=== PATIENT | female | born 1940 | race Caucasian/White ===

== ENCOUNTER 2019-09-29 12:48 | Emergency (ER) | payer OTHER ==
[~2019-09-29] VITALS: Ht 167.6 cm; Wt 68.0 kg
[2019-09-29 12:55] VITALS: BP 140/108
[2019-09-29] MEDS ORDERED: ACETAMINOPHEN 500 MG TAB PO ONE (13:15)
[2019-09-29] MEDS ORDERED: TETANUS-DIPTH-ACEL PERTUSSIS 0.5ML SYR Tdap IM ONE (13:30)
[2019-09-29] MEDS ORDERED: LIDOCAINE 1% HCL (LOCAL ANESTH.) INJ 20ML MDV ID ONE (13:30)
== END 2019-09-29 14:34 | disposition home or self-care (01) ==
LOC: EDBD 12:48 → ER 12:48
DX: S91.312A Laceration without foreign body, left foot, initial encounter (principal); E78.5 Hyperlipidemia, unspecified; I10 Essential (primary) hypertension; Z88.0 Allergy status to penicillin; Z88.6 Allergy status to analgesic agent; W45.8XXA Other foreign body or object entering through skin, initial encounter; Y93.89 Activity, other specified; Y92.89 Other specified places as the place of occurrence of the external cause; Y99.8 Other external cause status
CPT/HCPCS: 12002; 73630; 90471; 90715; 99283; J2001

== ENCOUNTER 2020-05-30 20:04 | Inpatient (IN) | payer OTHER ==
[~2020-05-30] VITALS: Ht 167.6 cm; Wt 73.3 kg
[2020-05-30] MEDS ORDERED: SODIUM CHLORIDE 0.9% 1,000 ML IV ONE (23:00)
[2020-05-30 23:42] LABS: Basophils # (auto) 0.1 10 ^3/uL (0-0.2); Basophils % (auto) 0.6 % (0.0-2.0); Eosinophils # (auto) 0.1 10 ^3/uL (0-0.8); Eosinophils % (auto) 0.8 % (0.0-7.0); Hematocrit 41.2 % (36.0-46.0); Hemoglobin 13.5 g/dL (12.2-16.2); Lymphocytes # (auto) 1.4 10 ^3/uL (0.4-5.4); Lymphocytes % (auto) 9.2 % (10.0-50.0); Mean Corpuscular Hemoglobin 30.4 pg (28.0-32.0); Mean Corpuscular Hgb Conc. 32.7 g/dL (32.0-36.0); Monocytes # (auto) 1.4 10 ^3/uL (0-1.3); Monocytes % (auto) 8.9 % (0.0-12.0); Neutrophils # (auto) 12.5 10 ^3/uL (1.6-8.6); Neutrophils % (auto) 80.5 % (37.0-80.0); Nucleated Red Blood Cells % 0.1 %; Platelet Count (auto) 236 10^3/uL (140-450); Red Blood Cells 4.43 10^6/uL (4.0-5.20); Red Cell Distribution Width 13.9 % (11.8-14.3); White Blood Cell 15.5 10^3/uL (4.4-10.8)
[2020-05-30 23:58] LABS: Albumin 3.6 g/dL (3.4-5.0); Calcium 8.5 mg/dL (8.5-10.1); Potassium 4.5 mmol/L (3.5-5.1)
[2020-05-31 00:01] LABS: Bilirubin, Total 1.1 mg/dL (0.2-1.0); Total Protein 6.3 g/dL (6.4-8.2)
[2020-05-31 01:04] LABS: Urine Bacteria NONE SEEN /hpf (None Seen); Urine Blood Negative /uL (Negative); Urine Mucus FEW (None Seen); Urine WBC 3 /hpf (0 - 5)
[2020-05-31] MEDS ORDERED: MESALAMINE 400mg Delayed Release Cap PO ONE (02:30)
[2020-05-31] MEDS ORDERED: fentaNYL CITRATE 100 MCG/2 ML VL IV ONE (02:30)
[2020-05-31] MEDS ORDERED: CIPROFLOXACIN HCL 500 MG TAB PO ONE (02:30)
[2020-05-31] MEDS ORDERED: cefTRIAXone 1GM/50ML D5W 50 ML IV ONE (03:15)
[2020-05-31] MEDS ORDERED: ONDANSETRON HCL 4 MG/2 ML VIAL IV PRN (05:30)
[2020-05-31] MEDS ORDERED: HYDROcodone-ACET 5/325MG TAB PO PRN ×3 (05:30→17:15)
[2020-05-31] MEDS ORDERED: ACETAMINOPHEN 325 MG TAB PO PRN (05:30)
[2020-05-31] MEDS ORDERED: MORPHINE SULF INJ 2 MG/ML SYRINGE 1ML IV PRN (05:30)
[2020-05-31] MEDS ORDERED: VANCOMYCIN PER PHARMACY 0 MG IV SCH (05:30)
[2020-05-31] MEDS ORDERED: NITROGLYCERIN 0.4 MG SL TAB SL PRN (05:30)
[2020-05-31] MEDS ORDERED: MORPHINE SULFATE 4 MG/ML SYR/VIAL IV PRN (05:30)
[2020-05-31] MEDS: metroNIDAZOLE 500MG/100ML 100 ML IV SCH ×3 (06:00→22:00)
[2020-05-31] MEDS ORDERED: VANCOMYCIN 1GM/250ML 250 ML IV ONE (06:15)
[2020-05-31 07:42] LABS: Basophils # (auto) 0.1 10 ^3/uL (0-0.2); Basophils % (auto) 0.7 % (0.0-2.0); Eosinophils # (auto) 0.2 10 ^3/uL (0-0.8); Eosinophils % (auto) 1.6 % (0.0-7.0); Hematocrit 37.6 % (36.0-46.0); Hemoglobin 12.2 g/dL (12.2-16.2); Lymphocytes # (auto) 1.9 10 ^3/uL (0.4-5.4); Lymphocytes % (auto) 15.7 % (10.0-50.0); Mean Corpuscular Hemoglobin 30.4 pg (28.0-32.0); Mean Corpuscular Hgb Conc. 32.4 g/dL (32.0-36.0); Monocytes # (auto) 1.3 10 ^3/uL (0-1.3); Monocytes % (auto) 10.9 % (0.0-12.0); Neutrophils # (auto) 8.7 10 ^3/uL (1.6-8.6); Neutrophils % (auto) 71.1 % (37.0-80.0); Platelet Count (auto) 249 10^3/uL (140-450); Red Cell Distribution Width 13.5 % (11.8-14.3); White Blood Cell 12.2 10^3/uL (4.4-10.8)
[2020-05-31 08:08] LABS: Cholesterol 123 mg/dL (< 200); HDL Cholesterol 56 mg/dL (40-59); LDL Cholesterol 57 mg/dL (< 100); Triglycerides 56 mg/dL (< 150)
[2020-05-31 08:16] LABS: Albumin 3.3 g/dL (3.4-5.0); BUN/Creatinine Ratio 21.3; Bilirubin, Total 0.7 mg/dL (0.2-1.0); Calcium 8.2 mg/dL (8.5-10.1); Total Protein 5.6 g/dL (6.4-8.2)
[2020-05-31] MEDS ORDERED: ASCORBIC ACID 500 MG TAB PO SCH (10:00)
[2020-05-31] MEDS ORDERED: ENOXAPARIN SOD 40 MG/0.4 ML SYRINGE SC SCH (10:00)
[2020-05-31] MEDS ORDERED: ZINC SULFATE 220mg CAP or TAB PO SCH (10:00)
[2020-05-31] MEDS ORDERED: MULTIPLE VITAMIN TAB PO SCH (10:00)
--- NOTE | 2020-05-31 10:28 | NUR ---
Telemetry admit from ER CALVIN DENIS admitted to Telemetry unit, no report received from ER. Patient oriented to TOM GOLDSTEIN primary RN, unit, room 296B and unit policies regarding patient care and visiting hours. Patient now on continuous telemetry monitoring, tele box #[id number] and telemetry reading on arrival to unit is sr 83. Patient weighed by bed scale and encouraged to call if they need something. All questions and concerns addressed, patient verbalized understanding.
[2020-05-31] MEDS: SOD CHL 0.45% 1,000 ML IV SCH ×2 (11:05→20:08)
[2020-05-31] MEDS: PANTOPRAZOLE 40 MG/10 ML VIAL INJ IV SCH (11:05)
[2020-05-31] MEDS ORDERED: MECL25TA18 PO (11:24)
[2020-05-31] MEDS ORDERED: AMLO5TAB15 PO (11:24)
[2020-05-31] MEDS ORDERED: LATA0.0019 LEFTEYE (11:24)
[2020-05-31] MEDS ORDERED: SIMV10TA84 PO (11:24)
[2020-05-31] MEDS ORDERED: ACET120S38 PR (11:24)
--- NOTE | 2020-05-31 11:55 | NUR ---
FAMILIA AT BEDSIDE Updated on the patient status. Plan of care was discussed with the patient and she verbalized understanding.
--- NOTE | 2020-05-31 12:30 | NUR ---
COVID SWAB WALKED TO LAB
[2020-05-31 13:00] VITALS: BP 120/58
[2020-05-31 14:06] LABS: INR 1.01 (0.9-1.15)
[2020-05-31 17:00] VITALS: BP 130/68
[2020-05-31] MEDS ORDERED: VANCOMYCIN 1GM/250ML 250 ML IV SCH (17:00)
[2020-05-31] MEDS: levoFLOXacin 500MG 100 ML IV SCH (17:28)
[2020-05-31] MEDS ORDERED: MESALAMINE 400mg Delayed Release Cap PO SCH (18:00)
--- NOTE | 2020-05-31 18:14 | NUR ---
IV INFILTRATION Levaquin infiltrated, patient complaining of itching and stinging at IV site, erythema noted. Called pharmacy. Per Pharmacist there is no protocol for infiltration with Levaquin, instructed to elevate extremity. Will discontinue IV and attempt a new start.
--- NOTE | 2020-05-31 18:32 | NUR ---
IV insertion IV access obtained, via clean sterile technique by inserting 22 gauge catheter at right AC after 2 attempts. IV secured properly. No trauma to site. Patient tolerated well.
--- NOTE | 2020-05-31 20:05 | NUR ---
open note assumed care of pt. pt awake and alert on room air. pt oriented to this nurse and updated on plan of care. pt denied any pain. pt bed locked low and 2x rails up. call light in reach. this nurse to round q1hr and prn. pt able to ambulate to rest room independently without incident.
[2020-05-31 22:34] VITALS: BP 126/62
[2020-06-01 05:25] LABS: Basophils # (auto) 0.1 10 ^3/uL (0-0.2); Basophils % (auto) 0.6 % (0.0-2.0); Eosinophils # (auto) 0.5 10 ^3/uL (0-0.8); Eosinophils % (auto) 4.7 % (0.0-7.0); Hematocrit 38.8 % (36.0-46.0); Hemoglobin 12.6 g/dL (12.2-16.2); Lymphocytes # (auto) 2.4 10 ^3/uL (0.4-5.4); Lymphocytes % (auto) 21.3 % (10.0-50.0); Mean Corpuscular Hemoglobin 30.6 pg (28.0-32.0); Mean Corpuscular Hgb Conc. 32.4 g/dL (32.0-36.0); Mean Corpuscular Volume 94.3 fL (80.0-100.0); Monocytes # (auto) 1.2 10 ^3/uL (0-1.3); Monocytes % (auto) 10.9 % (0.0-12.0); Neutrophils # (auto) 7.1 10 ^3/uL (1.6-8.6); Neutrophils % (auto) 62.5 % (37.0-80.0); Nucleated Red Blood Cells % 0.1 %; Platelet Count (auto) 240 10^3/uL (140-450); Red Blood Cells 4.11 10^6/uL (4.0-5.20); Red Cell Distribution Width 13.9 % (11.8-14.3); White Blood Cell 11.3 10^3/uL (4.4-10.8)
[2020-06-01 05:32] LABS: Potassium 4.1 mmol/L (3.5-5.1)
[2020-06-01 05:33] VITALS: BP 120/55
[2020-06-01 05:41] LABS: Albumin 3.2 g/dL (3.4-5.0); BUN/Creatinine Ratio 13.9; Bilirubin, Total 0.5 mg/dL (0.2-1.0); Calcium 8.3 mg/dL (8.5-10.1); Total Protein 6.2 g/dL (6.4-8.2)
[2020-06-01] MEDS: metroNIDAZOLE 500MG/100ML 100 ML IV SCH ×2 (06:00→14:00)
--- NOTE | 2020-06-01 07:04 | NUR ---
OPENING SHIFT NOTE Assumed care of patient from slot shift manager RN. Patient is alert and oriented x4, no signs of distress noted, denies pain. She was updated on the plan of care and verbalized understanding. Bed is locked, in the lowest position, side rails are up x2 and call light is in reach. She was encouraged to call for assistance as needed.
--- NOTE | 2020-06-01 07:14 | NUR ---
CALLED [facility] FOR COVID RESULTS per lab rep the sample needs to be retested and she will call me back if a new sample is needed. Will follow up.
[2020-06-01 08:00] VITALS: BP 113/57
[2020-06-01] MEDS: SOD CHL 0.45% 1,000 ML IV SCH (08:10)
[2020-06-01] MEDS: PANTOPRAZOLE 40 MG/10 ML VIAL INJ IV SCH (09:37)
[2020-06-01] MEDS: levoFLOXacin 500MG 100 ML IV SCH (09:37)
[2020-06-01 12:00] VITALS: BP 111/58
[2020-06-01 13:23] VITALS: BP 111/58
--- NOTE | 2020-06-01 14:27 | NUR ---
DISCHARGE Discharge instructions given as ordered. Encourage to follow up with PMD as instructed. All questions and concerns addressed. Patient verbalized understanding. Medication reconciliation form completed and copy given to patient. Home medications held in Pharmacy returned to patient, IV removed with catheter intact, pressure dressing applied. Telemetry unit returned to ICU. Patient taken to vehicle via wheelchair with all personal belongings, accompanied. No distress noted at time of departure.
[2020-06-01] MEDS ORDERED: LEVO500T21 PO (16:34)
[2020-06-01] MEDS ORDERED: METR500T PO (16:34)
--- NOTE | 2020-06-02 11:36 | NUR ---
Faxed Home Health Safety Eval to [facility] FAX [phone], , Faxed Home Safety Eval to [facility], [phone].
--- NOTE | 2020-06-02 12:26 | NUR ---
Received a call from Qiana at [facility] and stated they have accepted the patient, called [place] [facility] and spoke with Meka ZELAYA and stated she will fax the authorization to [facility]
[2020-06-02 12:58] LABS: Hepatitis A Ab IgM Negative; Hepatitis B Core IgM Negative; Hepatitis B Surface Antigen Negative (Negative); Hepatitis C Antibody Negative (Negative)
== END 2020-06-01 14:27 | disposition home health service (06) | DRG 442 ==
LOC: ER 20:04 → EDBD 20:04 → TELE 20:05 → TELE-WESTW 05-31 10:30
PROVIDERS: ADMIT Nurse Practitioner Family; ATTEND Nurse Practitioner Family
DX: K71.2 Toxic liver disease with acute hepatitis (principal); N30.01 Acute cystitis with hematuria; K58.9 Irritable bowel syndrome, unspecified; Z20.828 Contact with and (suspected) exposure to other viral communicable diseases; E78.5 Hyperlipidemia, unspecified; I10 Essential (primary) hypertension; I70.0 Atherosclerosis of aorta; K44.9 Diaphragmatic hernia without obstruction or gangrene; K80.50 Calculus of bile duct without cholangitis or cholecystitis without obstruction; E78.00 Pure hypercholesterolemia, unspecified; M19.90 Unspecified osteoarthritis, unspecified site; Z90.49 Acquired absence of other specified parts of digestive tract; Z79.899 Other long term (current) drug therapy; Z88.0 Allergy status to penicillin; Z88.8 Allergy status to other drugs, medicaments and biological substances; D72.829 Elevated white blood cell count, unspecified
CPT/HCPCS: 36415; 74176; 76705; 80053; 80061; 80074; 81001; 83690; 84484; 85025; 85610; 96361; 96365; 96375; C9113; G0378; J0696; J1956; J2405; J3490

== ENCOUNTER 2021-04-18 10:36 | Inpatient (IN) | payer MEDICARE, OTHER ==
[~2021-04-18] VITALS: Ht 160 cm; Wt 57.5 kg
[~2021-04-18 10:36] MED LIST: ACET120S38 PR; AMLO-489 PO; LATA0.0019 LEFTEYE; LEVO500T31 PO; MECL25TA18 PO; METR500T PO
[2021-04-18] MEDS ORDERED: ACETAMINOPHEN 325 MG TAB PO ONE (11:00)
[2021-04-18] MEDS ORDERED: SODIUM CHLORIDE 0.9% 1,000 ML IV ONE (11:00)
[2021-04-18 11:58] LABS: Basophils # (auto) 0.1 10 ^3/uL (0-0.2); Basophils % (auto) 0.4 % (0.0-2.0); Eosinophils # (auto) 0 10 ^3/uL (0-0.8); Eosinophils % (auto) 0.3 % (0.0-7.0); Hematocrit 36.8 % (36.0-46.0); Hemoglobin 12.4 g/dL (12.2-16.2); Lymphocytes % (auto) 7.2 % (10.0-50.0); Mean Corpuscular Hemoglobin 31.3 pg (28.0-32.0); Mean Corpuscular Hgb Conc. 33.7 g/dL (32.0-36.0); Monocytes # (auto) 1.7 10 ^3/uL (0-1.3); Monocytes % (auto) 12.1 % (0.0-12.0); Neutrophils # (auto) 11.6 10 ^3/uL (1.6-8.6); Red Blood Cells 3.96 10^6/uL (4.0-5.20); Red Cell Distribution Width 13.9 % (11.8-14.3); White Blood Cell 14.5 10^3/uL (4.4-10.8)
[2021-04-18 12:02] LABS: Chloride 109 mmol/L (98-107); Potassium 3.9 mmol/L (3.5-5.1); Sodium 142 mmol/L (136-145)
[2021-04-18 12:25] LABS: Alanine Aminotransferase 26 U/L (13-56); Albumin 3.2 g/dL (3.4-5.0); Alkaline Phosphatase 59 U/L (45-117); Anion Gap 5 (5-15); Aspartate Aminotransferase 16 U/L (15-37); BUN/Creatinine Ratio 20.8; Bilirubin, Total 0.4 mg/dL (0.2-1.0); Blood Urea Nitrogen 15 mg/dL (7-18); CRP High Sensitivity 0.23 mg/dL (< 0.3); Calcium 8.3 mg/dL (8.5-10.1); Carbon Dioxide 28 mmol/L (21-32); GFR African American 100 mL/min; GFR Non-African American 83 mL/min; Glucose 103 mg/dL (74-106); Magnesium 2.1 mg/dL (1.6-2.6); Total Protein 6.2 g/dL (6.4-8.2)
[2021-04-18 14:38] LABS: Urine Bacteria NONE SEEN /hpf (None Seen); Urine Blood Negative /uL (Negative); Urine Mucus FEW (None Seen); Urine Specific Gravity 1.014 (1.001-1.035); Urine WBC 7 /hpf (0 - 5)
[2021-04-18] MEDS ORDERED: NITROGLYCERIN 0.4 MG SL TAB SL PRN ×2 (15:30→16:15)
[2021-04-18] MEDS ORDERED: MORPHINE SULFATE INJECTION 2 MG/ML SYRG IV PRN ×3 (15:30→16:15)
[2021-04-18] MEDS ORDERED: AZITHROMYCIN 500MG/ 250ML 250 ML IV ONE (15:30)
[2021-04-18] MEDS ORDERED: AZTREONAM 1GM INJ 1 GM in D5W 5% 50 ML IV ONE (15:30)
[2021-04-18] MEDS ORDERED: ONDANSETRON HCL 4 MG/2 ML VIAL IV PRN (16:15)
[2021-04-18] MEDS ORDERED: DOCUSATE SOD 100 MG CAP PO PRN (16:15)
[2021-04-18] MEDS ORDERED: ALUM & MAG HYDROX-SIMETH LIQ(MAALOX) 30 ML PO PRN (16:15)
[2021-04-18] MEDS ORDERED: LACTATED RINGER'S 1,000 ML IV ONE (16:15)
[2021-04-18] MEDS ORDERED: LORazepam 0.5 MG TAB PO PRN (16:15)
[2021-04-18] MEDS ORDERED: LORazepam 2MG/ML-1ML VIAL IV PRN (16:15)
[2021-04-18] MEDS ORDERED: ACETAMINOPHEN 325 MG TAB PO PRN (16:15)
[2021-04-18] MEDS ORDERED: HYDROcodone-ACET 5/325MG TAB PO PRN (16:15)
[2021-04-18] MEDS ORDERED: hydrALAZINE HCL 20 MG/ML VL IV PRN (16:30)
[2021-04-18] MEDS ORDERED: MECLIZINE HCL 25 MG TAB PO PRN (16:30)
[2021-04-18] MEDS ORDERED: ENOXAPARIN SOD 40 MG/0.4 ML SYRINGE SC ONE (16:30)
[2021-04-18] MEDS: SODIUM CHLORIDE 0.9% 1,000 ML IV SCH (16:46)
[2021-04-18 17:18] LABS: Cholesterol 101 mg/dL (< 200)
[2021-04-18 17:22] LABS: HDL Cholesterol 58 mg/dL (40-59); LDL Cholesterol 44 mg/dL (< 100); Triglycerides 51 mg/dL (< 150)
[2021-04-18 19:16] LABS: Alcohol, Urine < 3.0 mg/dL (0-10); Amphetamine Screen, Urine NEGATIVE (NEGATIVE); Barbiturate Scree,Urine NEGATIVE (NEGATIVE); Benzodiazephine Screen, Urine NEGATIVE (NEGATIVE); Cannabinoid Screen, Urine NEGATIVE (NEGATIVE); Cocaine Screen, Urine NEGATIVE (NEGATIVE); Opiate Scree,Urine NEGATIVE (NEGATIVE); Phencyclidine Screen, Urine NEGATIVE (NEGATIVE)
[2021-04-18 19:47] VITALS: BP 118/51
[2021-04-18 20:08] VITALS: BP 118/51
[2021-04-18] MEDS: FAMOTIDINE (10MG/ML) 2ML VL IV SCH (21:09)
[2021-04-18] MEDS: LATANOPROST 0.005 % OPTH(EYE) SOL 2.5ML LEFTEYE SCH (21:09)
[2021-04-18] MEDS: AZTREONAM 1GM INJ 1 GM in D5W 5% 50 ML IV SCH (21:09)
[2021-04-18] MEDS: traZODone HCL 50 MG TAB PO SCH (21:09)
[2021-04-18] MEDS: ATORVASTATIN 20 MG TAB PO SCH (21:10)
[2021-04-18] MEDS ORDERED: TRAZ-181 PO (21:14)
[2021-04-18] MEDS ORDERED: [UNRECOGNIZED DRUG - CODE] PO (21:14)
[2021-04-18 22:00] VITALS: BP 118/51
[2021-04-19 05:00] VITALS: BP 105/62
[2021-04-19] MEDS: AZTREONAM 1GM INJ 1 GM in D5W 5% 50 ML IV SCH (05:39)
[2021-04-19 08:28] LABS: Basophils # (auto) 0.1 10 ^3/uL (0-0.2); Eosinophils # (auto) 0.2 10 ^3/uL (0-0.8); Eosinophils % (auto) 2.6 % (0.0-7.0); Hematocrit 32.2 % (36.0-46.0); Hemoglobin 10.9 g/dL (12.2-16.2); Lymphocytes # (auto) 1.8 10 ^3/uL (0.4-5.4); Lymphocytes % (auto) 19.3 % (10.0-50.0); Mean Corpuscular Hgb Conc. 33.9 g/dL (32.0-36.0); Mean Corpuscular Volume 94.3 fL (80.0-100.0); Monocytes % (auto) 10.7 % (0.0-12.0); Neutrophils # (auto) 6.4 10 ^3/uL (1.6-8.6); Neutrophils % (auto) 66.4 % (37.0-80.0); Nucleated Red Blood Cells % 0.1 %; Red Blood Cells 3.41 10^6/uL (4.0-5.20); Red Cell Distribution Width 14.1 % (11.8-14.3); White Blood Cell 9.6 10^3/uL (4.4-10.8)
[2021-04-19 08:47] LABS: Albumin 2.6 g/dL (3.4-5.0); Anion Gap 3 (5-15); Blood Urea Nitrogen 11 mg/dL (7-18); Carbon Dioxide 28 mmol/L (21-32); Chloride 110 mmol/L (98-107); Glucose 87 mg/dL (74-106); Magnesium 2.2 mg/dL (1.6-2.6); Potassium 3.9 mmol/L (3.5-5.1); Sodium 141 mmol/L (136-145)
[2021-04-19 08:54] LABS: Alanine Aminotransferase 20 U/L (13-56); Alkaline Phosphatase 50 U/L (45-117); Aspartate Aminotransferase 12 U/L (15-37); BUN/Creatinine Ratio 18.6; Bilirubin, Total 0.4 mg/dL (0.2-1.0); GFR African American 126 mL/min; GFR Non-African American 105 mL/min; Phosphorus 2.9 mg/dL (2.5-4.90); Total Protein 5.6 g/dL (6.4-8.2)
[2021-04-19] MEDS: SODIUM CHLORIDE 0.9% 1,000 ML IV SCH (08:55)
[2021-04-19 09:15] VITALS: BP 101/48
[2021-04-19 09:20] LABS: INR 0.99 (0.9-1.15); Partial Thromboplastin Time 28.3 sec (23.6-33.0)
[2021-04-19] MEDS: ENOXAPARIN SOD 40 MG/0.4 ML SYRINGE SC SCH (10:00)
[2021-04-19] MEDS: ASPirin 81 mg TAB PO SCH (10:00)
[2021-04-19] MEDS ORDERED: AZITHROMYCIN 500MG/ 250ML 250 ML IV SCH (10:00)
[2021-04-19 13:12] VITALS: BP 127/60
[2021-04-19 17:00] VITALS: BP 102/60
[2021-04-19] MEDS: LATANOPROST 0.005 % OPTH(EYE) SOL 2.5ML LEFTEYE SCH (21:19)
[2021-04-19] MEDS: FAMOTIDINE (10MG/ML) 2ML VL IV SCH (21:19)
[2021-04-19] MEDS: traZODone HCL 50 MG TAB PO SCH (21:19)
[2021-04-19] MEDS: ATORVASTATIN 20 MG TAB PO SCH (21:20)
[2021-04-19 22:00] VITALS: BP 126/72
[2021-04-20 05:00] VITALS: BP 111/55
[2021-04-20 07:50] VITALS: BP 132/73
[2021-04-20 09:00] VITALS: BP 132/73
[2021-04-20] MEDS: ASPirin 81 mg TAB PO SCH (09:08)
[2021-04-20] MEDS: ENOXAPARIN SOD 40 MG/0.4 ML SYRINGE SC SCH (09:09)
[2021-04-20] MEDS ORDERED: levoFLOXacin 750MG 150 ML IV SCH (10:00)
[2021-04-20] MEDS: PANTOPRAZOLE 40 MG TAB PO ONE ×2 (13:00→18:56)
[2021-04-20] MEDS ORDERED: HYOSCYAMINE SULF 0.125 MG ODT TAB PO PRN (13:00)
[2021-04-20] MEDS ORDERED: ALUM & MAG HYDROX-SIMETH LIQ(MAALOX) 30 ML PO PRN (13:30)
[2021-04-20 20:00] VITALS: BP 143/81
[2021-04-20] MEDS: PANTOPRAZOLE 40 MG TAB PO SCH (20:45)
[2021-04-20] MEDS: traZODone HCL 50 MG TAB PO SCH (20:45)
[2021-04-20] MEDS: ATORVASTATIN 20 MG TAB PO SCH (20:45)
[2021-04-20] MEDS: LATANOPROST 0.005 % OPTH(EYE) SOL 2.5ML LEFTEYE SCH (21:16)
[2021-04-20 22:00] VITALS: BP 143/81
[2021-04-21 05:30] VITALS: BP 122/58
[2021-04-21] MEDS: ASPirin 81 mg TAB PO SCH (08:33)
[2021-04-21] MEDS: PANTOPRAZOLE 40 MG TAB PO SCH (08:33)
[2021-04-21] MEDS: ENOXAPARIN SOD 40 MG/0.4 ML SYRINGE SC SCH (08:34)
[2021-04-21 09:00] VITALS: BP 118/47
[2021-04-21] MEDS ORDERED: LEVO750T64 PO (09:55)
[2021-04-21] MEDS ORDERED: PANT40T PO (09:56)
[2021-04-21] MEDS ORDERED: levoFLOXacin 250 MG TAB PO SCH (11:45)
[2021-04-22] MEDS ORDERED: levoFLOXacin 250 MG TAB PO SCH (10:00)
== END 2021-04-21 12:38 | disposition home or self-care (01) | DRG 871 ==
LOC: EDBD 10:36 → ER 10:36 → TELE 16:20 → TELE-CENTR 19:43
PROVIDERS: ADMIT Hospitalist; ATTEND Internal Medicine
DX: A41.9 Sepsis, unspecified organism (principal); J15.9 Unspecified bacterial pneumonia; J96.01 Acute respiratory failure with hypoxia; E44.0 Moderate protein-calorie malnutrition; B37.9 Candidiasis, unspecified; E78.5 Hyperlipidemia, unspecified; F02.80 Dementia in other diseases classified elsewhere, unspecified severity, without behavioral disturbance, psychotic disturbance, mood disturbance, and anxiety; F32.9 Major depressive disorder, single episode, unspecified; G30.9 Alzheimer's disease, unspecified; Z20.822 Contact with and (suspected) exposure to COVID-19; K58.9 Irritable bowel syndrome, unspecified; M54.50 Low back pain, unspecified; G89.29 Other chronic pain; H40.9 Unspecified glaucoma; I10 Essential (primary) hypertension; K21.9 Gastro-esophageal reflux disease without esophagitis; Z88.0 Allergy status to penicillin; Z88.8 Allergy status to other drugs, medicaments and biological substances; Z68.22 Body mass index [BMI] 22.0-22.9, adult; Z90.49 Acquired absence of other specified parts of digestive tract
CPT/HCPCS: 36415; 71045; 80053; 80061; 80307; 81001; 82728; 83036; 83605; 83615; 83735; 83880; 84100; 84443; 84484; 85025; 85379; 85610; 85730; 86141; 87040; 87070; 87081; 87086; 87205; 87426; 93005; 93306; 96361; 96365; 96366; 96367; 96375; G0378; J1956; J3490; J7060

== ENCOUNTER 2022-05-27 13:57 | Emergency (ER) | payer MEDICARE ==
[~2022-05-27] VITALS: Ht 162.6 cm; Wt 55.0 kg
[~2022-05-27 13:57] MED LIST changes: -LEVO500T31 PO; +LEVO750T64 PO; -METR500T PO; +PANT40T PO; +TRAZ-181 PO; +[UNRECOGNIZED DRUG - CODE] PO
[2022-05-27] MEDS ORDERED: HYDR-4902 PO (19:57)
[2022-05-27 20:55] VITALS: BP 117/68
== END 2022-05-27 20:53 | disposition home or self-care (01) ==
LOC: ER 13:57 → EDBD 13:57 → ER 20:53
DX: G89.29 Other chronic pain (principal); M54.50 Low back pain, unspecified; I10 Essential (primary) hypertension; E78.5 Hyperlipidemia, unspecified; Z90.49 Acquired absence of other specified parts of digestive tract; Z90.89 Acquired absence of other organs; Z79.2 Long term (current) use of antibiotics; Z79.899 Other long term (current) drug therapy; Z88.0 Allergy status to penicillin; Z88.8 Allergy status to other drugs, medicaments and biological substances
CPT/HCPCS: 72131

== ENCOUNTER 2024-08-02 11:17 | Inpatient (IN) | payer MEDICARE ==
[~2024-08-02] VITALS: Ht 157.5 cm; Wt 56.4 kg
[~2024-08-02 11:17] MED LIST changes: -AMLO-489 PO; +AMLO1TAB22 PO; +HYDR-4902 PO; -LATA0.0019 LEFTEYE; +LATA0.008 LEFTEYE; +LEVO750T40 PO; -LEVO750T64 PO; +MECL-90 PO; -MECL25TA18 PO
--- NOTE | 2024-08-02 11:48 | ED.PDOC ---
SOB-HPI HPI Comments 84y F who presents to the ED via EMS for chief complaint of flu-like symptoms. Per EMS, pt has been having flu-like symptoms with associated chills, and cough. Pt states this AM, she noticed she has blood like streaks in vomit and called EMS. Upon EMS arrival, pt had vitals checked and pt had stable vitals with noted exception of 02 sat of 91% on room air with no respiratory distress and EMS staff placed pt on 2 L via nc and 02 sat kate of 97%. Pt now in the ED, states she got concerned she might have possible pneumonia and after calling PCP office, she was told to call EMS. Pt now in the ED, has noted accu check of 101 and temp of 98.8F with all other vitals in normal range. Pt states only medical history of arthritis. Pt otherwise states she lives by herself and denies any other recent sick contacts. pt denies any other symptoms at this time. Chief Complaint: flu-like Time Seen by MD: 11:43 Primary Care Provider: hermilo Price notes: Nurses Notes, Wallpaper Printer Helper Notes, Medications, Allergies (No allergies to medications) Information Source: Patient, Emergency Med Personnel Mode of Arrival: EMS Brought in by: EMS Severity: Moderate Timing: Hours Duration: Since onset Context: At Rest PE Risk Factors: None History of: None Prehospital treatment: Oxygen Modifying Factors: Nothing Associated Signs and Symptoms: Cough, Other (chills) If cough with SOB: Non-Productive Past Medical History PAST MEDICAL HISTORY: Arthritis, High Lipids, HTN Surgical History: Cholecystectomy, Tonsillectomy Surgical History (Other): back surgery, catarcts MANAGER ASSESSMENT History: No Pertinent MANAGER ASSESSMENT History Family History Family History: Reviewed,noncontributory to illness, No family hx of Cancer, No family hx of DM, No family hx of Heart dionte, No family hx of HTN, No family hx ofKidney dionte, No family hx of Liver dionte, No family hx of Lung dionte, No family hx of Stroke Social History Smoker: Non-Smoker Alcohol: Denies ETOH Use Drugs: Denies Drug Use Lives In: Home Constitutional: reports: chills; denies: diaphoresis, fatigue, fever, malaise, sweats, weakness, others EENTM: denies: blurred vision, double vision, ear bleeding, ear discharge, ear drainage, ear pain, ear ringing, eye pain, eye redness, hearing loss, mouth pain, mouth swelling, nasal discharge, nose bleeding, nose congestion, nose pain, photophobia, tearing, throat pain, throat swelling, voice changes, others Respiratory: reports: cough; denies: hemoptysis, orthopnea, SOB at rest, shortness of breath, SOB with excertion, stridor, wheezing, others Cardiovascular: denies: chest pain, dizzy spells, diaphoresis, Dyspnea on exertion, edema, irregular heart beat, left arm pain, lightheadedness, palpitations, PND, syncope, others Gastrointestinal: reports: vomiting (blood in vomit); denies: abdomen distended , abdominal pain, blood streaked bowels, constipated, diarrhea, dysphagia, difficulty swallowing, hematemesis, melena, nausea, poor appetite, poor fluid intake, rectal bleeding, rectal pain, others Genitourinary: denies: abnormal vagina bleeding, burning, dyspareunia, dysuria, flank pain, frequency, hematuria, incontinence, pain, , vagina discharge, urgency, others Neurological: denies: dizziness, fainting, headache, left sided numbness, left sided weakness, numbness, paresthesia, pre-existing deficit, right sided numbness, right sided weakness, seizure, speech problems, tingling, tremors, weakness, others Musculoskeletal: denies: back pain, gout, joint pain, joint swelling, muscle pain, muscle stiffness, neck pain, others Integumetry: denies: bruises, change in color, change in hair/nails, dryness, laceration, lesions, lumps, rash, wounds, others Allergic/Immunocompromised: denies: Difficulty Healing, Frequent Infections, Hives, Itching, others Hematologic/Lymphatic: denies: anemia, blood clots, easy bleeding, easy bruising, swollen glands, others Endocrine: denies: excessive hunger, excessive sweating, excessive thirst, excessive urination, flushing, intolerance to cold, intolerance to heat, unexplained weight gain, unexplained weight loss, others Psychiatric: denies: anxiety, bipolar disorder, depression, hopeless, panic disorder, schizophrenia, sleepless, suicidal, others All Other Systems: Reviewed and Negative Physical Exam General Appearance: Moderate Distress HEENT: Normal ENT Inspection, Pharynx Normal, TMs Normal Neck: Full Range of Motion, Non-Tender, Normal, Normal Inspection Respiratory: Chest Non-Tender, No Accessory Muscle Use, Rhonchi (Rhonchi to the left side) Cardiovascular: No Edema, No JVD, No Murmur, No Gallop, Normal Peripheral Pulses, Regular Rate/Rhythm Breast Exam: Deferred Gastrointestinal: No Organomegaly, Non Tender, No Pulsatile Mass, Normal Bowel Sounds, Soft Genitalia: Deferred Pelvic: Deferred Rectal: Deferred Extremities: No calf tenderness, Normal capillary refill, Normal inspection, Normal range of motion, Non-tender, No pedal edema Musculoskeletal : Apperance: Normal Neurologic: Alert, refinery operator crude unit II-XII nml as Tested, No Motor Deficits, Normal Affect, Normal Mood, No Sensory Deficits Cerebellar Function: Normal Reflexes: Normal Skin: Dry, Normal Color, Warm Lymphatic: No Adenopathy Was a procedure done? Was a procedure done?: No Differential Dx Differential Diagnosis: Bronchitis, Pneumonia, Pulmonary Embolism, Respiratory Distress, Pharyngitis, URI Comments influenza A and B, COVID, viral syndrome, X-Ray, Labs, Meds, VS Vital Signs Date Time Temp Pulse Resp B/P (MAP) Pulse Ox O2 Delivery O2 Flow Rate FiO2 08/02/24 11:43 70 08/02/24 11:20 98.8 86 18 154/68 (96) 97 Lab Test 08/02/24 11:54 Range/Units White Blood Count 11.3 H 4.4-10.8 10^3/uL Red Blood Count 4.05 4.0-5.20 10^6/uL Hemoglobin 12.6 12.2-16.2 g/dL Hematocrit 38.3 36.0-46.0 % Mean Corpuscular Volume 94.6 80.0-100.0 fL Mean Corpuscular Hemoglobin 31.1 28.0-32.0 pg Mean Corpuscular Hemoglobin Concent 32.8 32.0-36.0 g/dL Red Cell Distribution Width 13.4 11.8-14.3 % Platelet Count 205 140-450 10^3/uL Mean Platelet Volume 9.1 6.9-10.8 fL Neutrophils (%) (Auto) 68.4 37.0-80.0 % Lymphocytes (%) (Auto) 20.1 10.0-50.0 % Monocytes (%) (Auto) 9.7 0.0-12.0 % Eosinophils (%) (Auto) 1.1 0.0-7.0 % Basophils (%) (Auto) 0.7 0.0-2.0 % Neutrophils # (Auto) 7.7 1.6-8.6 10 ^3/uL Lymphocytes # (Auto) 2.3 0.4-5.4 10 ^3/uL Monocytes # (Auto) 1.1 0-1.3 10 ^3/uL Eosinophils # (Auto) 0.1 0-0.8 10 ^3/uL Basophils # (Auto) 0.1 0-0.2 10 ^3/uL Nucleated Red Blood Cells 0.1 % D-Dimer, Quantitative 1.11 H 0.0-0.49 mg/L FEU Sodium Level 139 136-145 mmol/L Potassium Level 4.0 3.5-5.1 mmol/L Chloride Level 103 98-107 mmol/L Carbon Dioxide Level 29 20-31 mmol/L Anion Gap 7 5-15 Blood Urea Nitrogen 13 9-23 mg/dL Creatinine 0.92 0.550-1.02 mg/dL Glomerular Filtration Rate Calc 62 >90 mL/min BUN/Creatinine Ratio 14.1 10.0-20.0 Serum Glucose 85 74-106 mg/dL Calcium Level 9.1 8.7-10.4 mg/dL The chest x-ray shows: FINDINGS: There are interstitial infiltrates in the left mid to lower lung, increased versus prior chest x-ray. There is central peribronchial thickening. No pneumo thorax. The heart is not enlarged. The aortic arch is calcific. The central pulmonary arteries may be ectatic. No fractures are identified about the bony thorax. IMPRESSION: 1. Interstitial infiltrates in the left mid to lower lung are greater than that seen on chest x-ray dated 04/19/2021. This appearance is most suggestive of recurrent interstitial pneumonia, less likely due to progressive left lung scarring. 2. Reactive airways disease. 3. Atherosclerotic vascular disease and possible pulmonary arterial hypertension. The patient's CBC shows an elevated white blood cell count of 11.3 Based on the findings on the chest x-ray, it seems that the patient was having an increase pneumonia The patient was being started on Levaquin 500 mg IV piggyback We are ordering a CT scan of the chest to rule out PE The D-dimer is elevated at 1.11 The patient was being admitted at this time Images Reviewed?: Images reviewed and evaluated by me Time of 1ST Reevaluation: 12:15 Reevaluation 1ST: Unchanged Patient Education/Counseling: Diagnosis, Treatment Family Education/Counseling: No Family Present Additional Information - I reviewed the following notes from patient's past medical encounters: - The following tests were ordered, and results were reviewed by me: (Labs, X- Ray, EKG): cbc, chest x-ray, lactic acid, bmp, covid test, influenza a and b, ekg x1, d-dimer - Additional information was gathered from interviewing the following independent Historian: (Family, Other Providers, EMT): ems, - I reviewed and agreed with the following test results read by other provider: (X-ray, CT, US): radiologist - I discussed treatments and results with medical personnel and: (consultants, family): none Departure 1 Departure Time of Disposition: 12:27 Impression: Primary Impression: Acute respiratory failure Qualified Codes: J96.01 - Acute respiratory failure with hypoxia Additional Impression: Left lower lobe pneumonia Qualified Codes: J18.9 - Pneumonia, unspecified organism Disposition: 09 ADMITTED INPATIENT Admit to: Tele Condition: Fair Critical Care Note Critical Care Time?: Yes (35 min-critical care time only) Stability Stability form required: Yes Unstable for transfer: ED Physician Assesment (Clinical assesment) Heart Score Heart Score: Heart Score Response (Comments) Value History N/A 0 EKG N/A 0 Age N/A 0 Risk Factors N/A 0 Troponin N/A 0 Total 0 I personally scribed for LULA ALLISON MD ([email or web address]) on 08/02/24 at 11:48. Electronically submitted by Rafy Knight ([email or web address]). LULA ALLISON MD Aug 02, 2024 11:48
[2024-08-02 12:14] LABS: Basophils # (auto) 0.1 10 ^3/uL (0-0.2); Basophils % (auto) 0.7 % (0.0-2.0); Eosinophils # (auto) 0.1 10 ^3/uL (0-0.8); Eosinophils % (auto) 1.1 % (0.0-7.0); Hematocrit 38.3 % (36.0-46.0); Hemoglobin 12.6 g/dL (12.2-16.2); Lymphocytes # (auto) 2.3 10 ^3/uL (0.4-5.4); Lymphocytes % (auto) 20.1 % (10.0-50.0); Mean Corpuscular Hemoglobin 31.1 pg (28.0-32.0); Mean Corpuscular Hgb Conc. 32.8 g/dL (32.0-36.0); Mean Corpuscular Volume 94.6 fL (80.0-100.0); Monocytes # (auto) 1.1 10 ^3/uL (0-1.3); Monocytes % (auto) 9.7 % (0.0-12.0); Neutrophils # (auto) 7.7 10 ^3/uL (1.6-8.6); Neutrophils % (auto) 68.4 % (37.0-80.0); Nucleated Red Blood Cells % 0.1 %; Platelet Count (auto) 205 10^3/uL (140-450); Red Blood Cells 4.05 10^6/uL (4.0-5.20); Red Cell Distribution Width 13.4 % (11.8-14.3); White Blood Cell 11.3 10^3/uL (4.4-10.8)
[2024-08-02 12:17] LABS: Chloride 103 mmol/L (98-107); Sodium 139 mmol/L (136-145)
--- NOTE | 2024-08-02 12:17 | DVH ---
EXAM: XY CHEST PORTABLE HISTORY: cough COMPARISON: CHEST XRAY 1 VIEW on DOS: 04/19/21, CHEST PORTABLE on DOS: 04/18/21 TECHNIQUE: Portable AP view of the chest was performed. FINDINGS: There are interstitial infiltrates in the left mid to lower lung, increased versus prior chest x-ray. There is central peribronchial thickening. No pneumothorax. The heart is not enlarged. The aortic a rch is calcific. The central pulmonary arteries may be ectatic. No fractures are identified about the bony thorax. IMPRESSION: 1. Interstitial infiltrates in the left mid to lower lung are greater than that seen on chest x-ray d ated 04/19/2021. This appearance is most suggestive of recurrent interstitial pneumonia, less likely due to progressive left lung scarring. 2. Reactive airways disease. 3. Atherosclerotic vascular disease and possible pulmonary arterial hypertension.
[2024-08-02 12:18] LABS: Anion Gap 7 (5-15); Calcium 9.1 mg/dL (8.7-10.4); Carbon Dioxide 29 mmol/L (20-31)
[2024-08-02 12:23] LABS: BUN/Creatinine Ratio 14.1 (10.0-20.0); Blood Urea Nitrogen 13 mg/dL (9-23); Glucose 85 mg/dL (74-106)
[2024-08-02] MEDS: IOHEXOL 350 MG/ML 100ML IJ ONE (13:46)
--- NOTE | 2024-08-02 14:11 | DVH ---
CTA CHEST INDICATION: cp TECHNIQUE: Multidetector CTA of the chest was performed of the chest with 100 cc of intravenous contr ast. PULMONARY ANGIOGRAPHY PROTOCOL was utilized using a bolus-tracking technique centered on the kelsea n pulmonary artery. Axial, coronal and sagittal multiplanar and MIP reformats were performed. Radiation Dose Information: CT Dose: CTDI volume is 6.25 mGy. Dose-length product is 243.28 mGy*cm The dose indicators for CT are the volume Computed Tomography (CT) Dose Index (CTDIvol) and the Dose Length Product (DLP), and are measured in units of mGy and mGy-cm, respectively. These indicators are not patient dose, but values generated from the CT scanner acquisition factors. The report includes radiation exposure data for exposures received during this examination. Comparison: None Findings: Pulmonary artery: There is no evidence of a pulmonary arterial filling defect to suggest pulmonary e mbolism. The right and left main pulmonary arteries are prominent in size. Lungs/Pleura: There are moderate emphysematous changes in the lungs bilaterally. There are nonspecif ic ground-glass opacities in the left upper lobe and lingula. There is dependent atelectasis in the p osterior lung bases. There is no pleural effusion or pneumothorax. The central airways are clear. Heart/Vascular Structures: Normal heart size. The thoracic aorta demonstrates normal caliber. There is no evidence of pericardial effusion. Lymph Nodes: There is no evidence of thoracic lymphadenopathy. Musculoskeletal: No acute osseous abnormality. Upper abdomen: Limited portions of the upper abdomen are unremarkable. IMPRESSION: 1. There is no evidence of a pulmonary arterial filling defect to suggest pulmonary embolism. 2. Nonspecific ground-glass opacities in the left upper lobe and lingula. The findings May relate t o infectious/ inflammatory changes including atypical infections. 3. Prominent size right and left main pulmonary arteries can be seen the setting of pulmonary arteri al hypertension HS:Y
[2024-08-02 16:42] LABS: COVID19 ANTIGEN SOFIA FIA NEGATIVE (NEGATIVE); Rapid Influenza A Negative (Negative); Rapid Influenza B Negative (Negative)
[2024-08-02] MEDS: levoFLOXacin 500MG 100 ML IV ONE (16:49)
[2024-08-02] MEDS: levoFLOXacin 500 MG TAB PO ONE (16:56)
--- NOTE | 2024-08-02 19:06 | ECG ---
[facility] Test Date: 2024-08-02 Test Time: 11:42:16 Pat Name: CALVIN DENIS Department: ED Room: 0289 Gender: F Actuary: ROXANA : 1940 Requested By: LULA ALLISON Order Number: [id number] Reading MD: Malvin Carr Measurements Intervals [place] Rate: 70 P: 64 MT: 133 QRS: 50 QRSD: 96 T: 39 QT: 392 QTc: 423 Interpretive Statements Sinus rhythm Electronically Signed On 08-03-2024 12:10:17 PST by Malvin Carr Please click the below link to view image of tracing.
--- NOTE | 2024-08-02 22:12 | DVHHPRES ---
History of Present Illness Resident Creating Document: ELIZABETH WALKER RESIDENT Reason for Visit: Flu-like symptoms History of Present Illness This is a 84-year-old female who comes into the ED with chief complain of flu- like symptoms. She has a past medical history relevant for hypertension, hyperlipidemia, arthritis. She has a ex nicotine smoker, denies any alcohol or drug use. Patient stated that for the last two days she is having worsening shortness of breath, productive cough, generalized weakness, chills, chest tightness, she also states having five episodes of hemoptysis, small amount. Denies any recurrent fevers, chills, weight loss. Patient states that she called EMS due to the aforementioned symptoms and they found her to have her saturation around 91%, she was placed on nasal cannula which kate her oxygen saturation. In the ED patient WBC count was high 11.3, D-dimer was elevated, COVID and flu were negative, EKG was sinus rhythm, she has a CT angio of the chest performed which ruled out a pulmonary embolism however it did show ground-glass opacities on left upper lung. Patient will be admitted for further investigation and management. Cardiovascular: HTN, hyperipidemia Past Surgical History Spine surgery Smoke: Quit ALCOHOL: none Drugs: None Lives: Alone Review of Systems Constitutional: Yes: Chills, Weakness, Malaise; No: Fever, Sweats, Other Eyes: No: Pain, Vision change, Conjunctivae inflammation, Eyelid inflammation, Other, Redness ENT: No: Ear pain, Ear discharge, Nose pain, Nose discharge, Nose congestion, Mouth pain, Mouth swelling, Throat pain, Throat swelling, Other Respiratory: Cough, Shortness of breath, SOB with excertion, Hemoptysis; No: Dry, Wheezing, Pleuritic Pain, Sputum, Wheezing, Other Cardiovascular: No: Chest Pain, Palpitations, Orthopnea, Paroxysmal Noc. Dyspnea, Edema, Lt Headedness, Other Gastrointestinal: No: Nausea, Vomiting, Abdominal Pain, Diarrhea, Constipation, Melena, Hematochezia, Other Genitourinary: No Dysuria, No Frequency, No Incontinence, No Hematuria, No Retention, No Other Musculoskeletal: No: other, neck pain, shoulder pain, arm pain, back pain, hand pain, leg pain, foot pain Skin: No: Rash, Lesions, Jaundice, Bruising, Other Neurological: No: Weakness, Numbness, Incoordination, Change in speech, Confusion, Seizures, Other Allergies: Coded Allergies: Bupropion (Verified Allergy, Unknown, 09/29/19) Penicillins (Verified Allergy, Unknown, 09/29/19) Exam Vital Signs Vital Signs Date Time Temp Pulse Resp B/P (MAP) Pulse Ox O2 Delivery O2 Flow Rate FiO2 08/02/24 20:11 85 14 131/79 (96) 96 08/02/24 16:00 Room Air* 0 21 08/02/24 11:20 98.8 General Appearance: Alert, Oriented X3, Cooperative, mild distress HEENT: Atraumatic, PERRLA, EOMI, Mucous membr. moist/pink Respiratory: Other (Bilateral scattered crackles most prominent on left side) Cardiovascular: Regular rate, Normal S1, Normal S2, No murmurs Abdominal: Normal bowel sounds, Soft, No tenderness Extremities: No clubbing, No cyanosis, No edema, Normal pulses Skin: No rashes, No breakdown, No significant lesion Neuro: Normal speech, Strength at 5/5 X4 ext, Normal tone Psych/Mental Status: Mental status NL, Mood NL Labs/Xrays Labs Test 08/02/24 13:29 08/02/24 11:54 Range/Units Influenza Type A Antigen Negative Negative Influenza Type B Antigen Negative Negative SARS-CoV-2 Antigen (Rapid) Negative NEGATIVE White Blood Count 11.3 H 4.4-10.8 10^3/uL Red Blood Count 4.05 4.0-5.20 10^6/uL Hemoglobin 12.6 12.2-16.2 g/dL Hematocrit 38.3 36.0-46.0 % Mean Corpuscular Volume 94.6 80.0-100.0 fL Mean Corpuscular Hemoglobin 31.1 28.0-32.0 pg Mean Corpuscular Hemoglobin Concent 32.8 32.0-36.0 g/dL Red Cell Distribution Width 13.4 11.8-14.3 % Platelet Count 205 140-450 10^3/uL Mean Platelet Volume 9.1 6.9-10.8 fL Neutrophils (%) (Auto) 68.4 37.0-80.0 % Lymphocytes (%) (Auto) 20.1 10.0-50.0 % Monocytes (%) (Auto) 9.7 0.0-12.0 % Eosinophils (%) (Auto) 1.1 0.0-7.0 % Basophils (%) (Auto) 0.7 0.0-2.0 % Neutrophils # (Auto) 7.7 1.6-8.6 10 ^3/uL Lymphocytes # (Auto) 2.3 0.4-5.4 10 ^3/uL Monocytes # (Auto) 1.1 0-1.3 10 ^3/uL Eosinophils # (Auto) 0.1 0-0.8 10 ^3/uL Basophils # (Auto) 0.1 0-0.2 10 ^3/uL Nucleated Red Blood Cells 0.1 % D-Dimer, Quantitative 1.11 H 0.0-0.49 mg/L FEU Sodium Level 139 136-145 mmol/L Potassium Level 4.0 3.5-5.1 mmol/L Chloride Level 103 98-107 mmol/L Carbon Dioxide Level 29 20-31 mmol/L Anion Gap 7 5-15 Blood Urea Nitrogen 13 9-23 mg/dL Creatinine 0.92 0.550-1.02 mg/dL Glomerular Filtration Rate Calc 62 >90 mL/min BUN/Creatinine Ratio 14.1 10.0-20.0 Serum Glucose 85 74-106 mg/dL Calcium Level 9.1 8.7-10.4 mg/dL Assessment/Plan Assessment/Plan #Acute hypoxic respiratory failure #Pneumonia, Gram-positive versus Gram-negative, rule out atypical, viral Continue nasal cannula as needed to maintain saturation at 92% Reviewed CT angio of the chest Order sputum culture COVID and flu test came back negative Levaquin 750 mg IV daily DuoNebs Q 4 hours p.r.n. #Elevated D-dimer, likely reactive due to underlying infection CT angio ruled out PE Lower extremity Doppler ruled out DVT #Hypertension, controlled Monitor Cardiac diet #Hyperlipidemia Resume home meds #History of GERD Continue Protonix DVT prophylaxis with Lovenox Goals of care were discussed for 30 minutes. Full code Case was discussed with Dr. Okeefe Plan discussed with: Patient, Son My Orders Orders - ELIZABETH WALKER RESIDENT Procedure Category Date Status Time Admit ADMIT 08/02/24 Transmitted 22:00 Oxygen By Nasal RT 08/02/24 Transmitted Cannula 22:00 Notify Of Changes JOSE 08/02/24 In Process From Base 22:00 Levofloxacin Levaquin PHA 08/03/24 Verified 10:00 Date of Service: Aug 03, 2024 Billing Provider: BETTY OKEEFE MD Common Visit Codes: [id number] INP/OBS CARE (HIGH) ELIZABETH WALKER RESIDENT Aug 02, 2024 22:11 BETTY OKEEFE MD Aug 05, 2024 15:56
[2024-08-02] MEDS ORDERED: traZODone HCL 50 MG TAB PO PRN (22:15)
[2024-08-02] MEDS ORDERED: ACETAMINOPHEN 325 MG TAB PO PRN (22:15)
[2024-08-02] MEDS: IPRATROPIUM BROM 0.5 MG/2.5ML INH SOL NEB ONE (22:27)
[2024-08-02] MEDS: ALBUTEROL SULF 2.5 MG/0.5ML(0.5%) NEB SOLN NEB ONE (22:27)
[2024-08-02] MEDS: ENOXAPARIN SOD 40 MG/0.4 ML SYRINGE SC ONE (23:07)
[2024-08-02 23:19] VITALS: BP 152/50; PULSE 64; RESP 18; TEMP 97.8; O2SAT 97
[2024-08-02 23:23] VITALS: BP 152/50; PULSE 64; RESP 18; TEMP 97.8; O2SAT 97
--- NOTE | 2024-08-02 23:48 | DVH ---
Bilateral lower extremity venous duplex Clinical History: elevated ddimer Comparison: None Technique: Duplex doppler evaluation of the deep venous systems of both lower extremities from the common femora l veins to the popliteal veins including color doppler and spectral/pulsed waveform analysis was perf ormed. Findings: RIGHT SIDE: The common femoral vein demonstrates appropriate compressibility and waveform variability. There is compressibility/patency of the great saphenous vein at the proximal thigh. The femoral vein demonstrates appropriate compressibility and waveform variability. The deep femoral vein demonstrates appropriate compressibility and waveform variability. The popliteal vein demonstrates appropriate compressibility and waveform variability. LEFT SIDE: The common femoral vein demonstrates appropriate compressibility and waveform variability. There is compressibility/patency of the great saphenous vein at the proximal thigh. The femoral vein demonstrates appropriate compressibility and waveform variability. The deep femoral vein demonstrates appropriate compressibility and waveform variability. The popliteal vein demonstrates appropriate compressibility and waveform variability. Impression: No right or left femoropopliteal venous thrombosis.
[2024-08-03] VITALS (10 sets, daily range): BP systolic 119–152; BP diastolic 47–66; PULSE 50–74; RESP 13–18; TEMP 97.7–98.1; O2SAT 91–96
[2024-08-03 07:24] LABS: Urine Bacteria None Seen /hpf (None Seen)
[2024-08-03 07:51] LABS: Urine Blood Negative /uL (Negative); Urine Clarity Clear (Clear); Urine Color Light-Yellow (Yellow); Urine Protein, UAD Negative (Negative); Urine Squamous Epithelial Cell FEW /hpf (<5); Urine Urobilinogen Normal (Negative); Urine WBC 1 /HPF (0-5)
[2024-08-03 09:01] LABS: Basophils # (auto) 0 10 ^3/uL (0-0.2); Basophils % (auto) 0.5 % (0.0-2.0); Eosinophils # (auto) 0.1 10 ^3/uL (0-0.8); Eosinophils % (auto) 1.5 % (0.0-7.0); Hematocrit 36.7 % (36.0-46.0); Hemoglobin 12.3 g/dL (12.2-16.2); Lymphocytes # (auto) 1.7 10 ^3/uL (0.4-5.4); Lymphocytes % (auto) 19.1 % (10.0-50.0); Mean Corpuscular Hemoglobin 31.5 pg (28.0-32.0); Mean Corpuscular Hgb Conc. 33.6 g/dL (32.0-36.0); Mean Corpuscular Volume 93.6 fL (80.0-100.0); Monocytes % (auto) 10.5 % (0.0-12.0); Neutrophils # (auto) 6.2 10 ^3/uL (1.6-8.6); Neutrophils % (auto) 68.4 % (37.0-80.0); Platelet Count (auto) 204 10^3/uL (140-450); Red Blood Cells 3.92 10^6/uL (4.0-5.20); Red Cell Distribution Width 13.1 % (11.8-14.3); White Blood Cell 9.1 10^3/uL (4.4-10.8)
[2024-08-03 09:08] LABS: Albumin 4.1 g/dL (3.2-4.8); Bilirubin, Direct 0.2 mg/dL (<0.3); Bilirubin, Total 0.6 mg/dL (0.2-1.0)
[2024-08-03 09:09] LABS: Total Protein 6.3 g/dL (5.7-8.2)
[2024-08-03 09:34] LABS: Anion Gap 10 (5-15)
[2024-08-03 09:35] LABS: Calcium 9.4 mg/dL (8.7-10.4); Carbon Dioxide 27 mmol/L (20-31); Chloride 102 mmol/L (98-107); Potassium 4.3 mmol/L (3.5-5.1); Sodium 139 mmol/L (136-145)
[2024-08-03 09:40] LABS: Blood Urea Nitrogen 15 mg/dL (9-23); Glucose 80 mg/dL (74-106)
[2024-08-03] MEDS: PANTOPRAZOLE 40 MG TAB PO SCH (10:57)
[2024-08-03] MEDS: levoFLOXacin 750MG 150 ML IV SCH (17:00)
--- NOTE | 2024-08-03 17:42 | DVHSR ---
APPROVED REPORT EXAM: Two-dimensional and M-mode echocardiogram with Doppler and color Doppler. Blood Pressure: 137/50 mmHg INDICATION SOB RISK FACTORS Height: 62, Weight: 112 DIMENSIONS LVDd4.8 (3.8-5.7cm)LA (2D)3.8 (1.9-4.0cm)Aortic Root3.5 (2.0-3.7cm) LVDs3.0 (2.5-4.0cm)LA (MM) (1.9-4.0cm)Aortic Cusp Exc1.6 (1.5-2.0cm) EF (%) 67.0 (55-70%)Rt. Atrium3.8 (1.9-4.0cm)Asc. Aorta cm IVSd0.8 (0.7-1.1cm)RV (D) (1.8-2.4cm) PWd0.9 (0.7-1.1cm) Mitral Valve MitralMitral Stenosis E wave0.68m/sMV Mean GR.mmHg A wave1.16m/sMV Peak GR.77mmHg E/A ratio0.62D MVAcm2 DECEL [id number] 1/2 [id number] IVRTmsDop MVA2.13cm2 Aortic Valve Aortic ValveAortic Stenosis V11.11m/Sol Mean GR.6mmHg V21.72m/Sol Peak GR.12mmHg LVOT Diameter1.8 (1.8-2.4cm)Doppler AVA1.64cm2 AI P 1/2 [id number] Tricuspid Valve TR Velocity2.59m/s [id number] Conclusion Sinus rhythm. Off axis views. Mild concentric LVH. Left atrial enlargement. Mild aortic root enlargement. Valves appear to be structurally normal. EF of 60% with normal RV function. Mild aortic insufficiency. No pericardial effusion masses or vegetations noted.
--- NOTE | 2024-08-03 18:01 | DVHPNRES ---
Progress Note Date Seen: Aug 03, 2024 Resident Creating Document: TIFFANY HOLM RESIDENT Medical Necessity Reason Pt with a Central, PICC or Fol: No Subjective Review of Systems This is a 84-year-old female with past medical history of hypertension, hyperlipidemia, arthritis presented to the ED with a chief complaint of flu-like symptoms, productive cough, shortness of breath, and chest tightness for last 5 days prior to this admission. patient also mentioned having 5 episodes of hemoptysis small amount but denies any fever chills , dizziness or any change in bowel and bladder habit. Patient was seen and examined on the bedside. She is alert, oriented x3 and on room air with saturation around 92%. in the ED D-dimer was elevated and CT angio of the chest performed which ruled out pulmonary embolism but revealed ground-glass opacity on the left upper lung and pulmonary hypertension. Constitutional: No: Fever, Chills, Sweats, Weakness, Malaise, Other Eyes: No: Pain, Vision change, Conjunctivae inflammation, Eyelid inflammation, Other, Redness ENT: No: Ear pain, Ear discharge, Nose pain, Nose discharge, Nose congestion, Mouth pain, Mouth swelling, Throat pain, Throat swelling, Other Respiratory: Cough, Hemoptysis, Shortness of breath, improving No: Dry,Wheezing, Pleuritic Pain, Sputum, Wheezing, Other Cardiovascular: No: Chest Pain, Palpitations, Orthopnea, Paroxysmal Noc. Dyspnea, Edema, Lt Headedness, Other Gastrointestinal: No: Nausea, Vomiting, Abdominal Pain, Diarrhea, Constipation, Melena, Hematochezia, Other Musculoskeletal: No: other, neck pain, shoulder pain, arm pain, back pain, hand pain, leg pain, foot pain Neurological:; No: Weakness, Numbness, Incoordination, Change in speech, Confusion, Seizures Objective vital signs Vital Sign Date Time Temp Pulse Resp B/P (MAP) Pulse Ox O2 Delivery O2 Flow Rate FiO2 08/03/24 13:00 98.1 50 15 142/50 (80) 92 98.1 08/03/24 10:00 Nasal Cannula* 2 28 Total Intake and Output 08/02/24 08/02/24 08/03/24 15:00 23:00 07:00 Intake Total 50 ml Balance 50 ml medications Current Medications Medications Dose Ordered Sig/Kaylyn Route Start Time Stop Time Status Last Admin Dose Admin Levofloxacin/ Dextrose 150 ml @ 100 mls/hr Q24H IV 08/03/24 17:00 Albuterol 2.5 mg Q4HPRN PRN NEB 08/02/24 22:15 Ipratropium Sullivan 0.5 mg Q4HPRN PRN NEB 08/02/24 22:15 Enoxaparin Sodium 40 mg DAILY SC 08/04/24 10:00 Pantoprazole Sodium 40 mg DAILY PO 08/03/24 10:00 08/03/24 10:57 40 MG Trazodone HCl 50 mg HS PRN PO 08/02/24 22:15 Acetaminophen 650 mg Q6HP PRN PO 08/02/24 22:15 Examination Physical examination: General Appearance: Alert, Oriented X3, Cooperative, No acute distress HEENT: Atraumatic, PERRLA, EOMI, Mucous membrane moist/pink Respiratory: Lt sided basal crackles. Cardiovascular: Regular rate, Normal S1, Normal S2, No murmurs, no chest wall tenderness Abdominal: Normal bowel sounds, Soft, No tenderness, No hepatospenomegaly, No masses Extremities: No clubbing, No cyanosis, No edema, Normal pulses, No tenderness/swelling Skin: No rashes, No breakdown, No significant lesion Neuro: Normal gait, Normal speech, Strength at 5/5 X4 ext, Normal tone, Sensation intact, grossly intact cranial nerves. Psych/Mental Status: Mental status NL, Mood NL laboratory and microbiology Laboratory Tests 08/03/24 07:15 Test 08/03/24 07:15 Range/Units Serum Glucose 80 74-106 mg/dL Microbiology Date/Time Source Procedure Growth Status 08/03/24 06:15 Nose MRSA Screen - Final Complete Labs and/or images reviewed: Labs reviewed by me, Image(s) reviewed by me Problem List/Assessment/Plan Problem List/Assessment/Plan Assessment/Plan # Acute hypoxic respiratory failure # Pneumonia, Gram-positive versus Gram-negative, rule out atypical, viral - Reviewed CT angio of the chest - Pending sputum culture - COVID and flu test came back negative - Levaquin 750 mg IV daily - DuoNebs Q 4 hours p.r.n. # Elevated D-dimer, likely reactive due to underlying infection - CT angio ruled out PE - Lower extremity Doppler ruled out DVT # Hypertension, controlled - Monitor - Cardiac diet # Hyperlipidemia -Resume home meds # History of GERD - Continue Protonix DVT prophylaxis with Lovenox Goals of care were discussed for 30 minutes. Full code Case was discussed with Dr. Spicer Plan discussed with: Patient, Other My Orders My Orders Orders - TIFFANY HOLM Procedure Category Date Status Time Echo 2d Mode Cardiac US 08/03/24 Resulted DOP 08:38 Date of Service: Aug 03, 2024 Billing Provider: ZE CAMILO MD Common Visit Codes: [id number] INP/OBS CARE(HIGH) TIFFANY HOLM Aug 03, 2024 18:01 ZE CAMILO MD Aug 07, 2024 09:50
[2024-08-03] MEDS ORDERED: levoFLOXacin 250 MG TAB PO ONE (19:00)
[2024-08-03] MEDS: levoFLOXacin 250 MG TAB PO ONE (20:00)
[2024-08-03] MEDS: MELATONIN 5 MG TAB PO SCH (22:00)
[2024-08-04] VITALS (8 sets, daily range): BP systolic 118–139; BP diastolic 61–67; PULSE 71–91; RESP 12–20; TEMP 97.6–98.4; O2SAT 90–99
[2024-08-04 03:23] LABS: Basophils # (auto) 0.1 10 ^3/uL (0-0.2); Basophils % (auto) 0.5 % (0.0-2.0); Eosinophils # (auto) 0.2 10 ^3/uL (0-0.8); Eosinophils % (auto) 1.4 % (0.0-7.0); Hematocrit 34.8 % (36.0-46.0); Hemoglobin 12.2 g/dL (12.2-16.2); Lymphocytes # (auto) 1.8 10 ^3/uL (0.4-5.4); Lymphocytes % (auto) 16.5 % (10.0-50.0); Mean Corpuscular Hemoglobin 32.6 pg (28.0-32.0); Mean Corpuscular Hgb Conc. 34.9 g/dL (32.0-36.0); Mean Corpuscular Volume 93.2 fL (80.0-100.0); Monocytes # (auto) 1.4 10 ^3/uL (0-1.3); Monocytes % (auto) 12.6 % (0.0-12.0); Neutrophils # (auto) 7.5 10 ^3/uL (1.6-8.6); Platelet Count (auto) 213 10^3/uL (140-450); Red Blood Cells 3.74 10^6/uL (4.0-5.20); Red Cell Distribution Width 13.1 % (11.8-14.3); White Blood Cell 10.9 10^3/uL (4.4-10.8)
[2024-08-04 03:28] LABS: Chloride 104 mmol/L (98-107); Potassium 4.1 mmol/L (3.5-5.1); Sodium 140 mmol/L (136-145)
[2024-08-04 03:29] LABS: Anion Gap 8 (5-15); Calcium 9.6 mg/dL (8.7-10.4); Carbon Dioxide 28 mmol/L (20-31)
[2024-08-04 03:34] LABS: BUN/Creatinine Ratio 12.2 (10.0-20.0); Blood Urea Nitrogen 10 mg/dL (9-23); Glucose 97 mg/dL (74-106)
[2024-08-04] MEDS: diphenhdrAMINE HCL 25 MG CAP PO ONE (03:56)
[2024-08-04] MEDS: IPRATROPIUM BROM 0.5 MG/2.5ML INH SOL NEB PRN (06:42)
[2024-08-04] MEDS: ALBUTEROL SULF 2.5 MG/0.5ML(0.5%) NEB SOLN NEB PRN (06:42)
[2024-08-04] MEDS: levoFLOXacin 250 MG TAB PO SCH (08:05)
[2024-08-04] MEDS: ENOXAPARIN SOD 40 MG/0.4 ML SYRINGE SC SCH (08:50)
[2024-08-04] MEDS ORDERED: LEVO750T40 PO (10:55)
--- NOTE | 2024-08-04 11:33 | DVHDSRES ---
Discharge Summary Date of Admission Resident Creating Document: TIFFANY HOLM RESIDENT Aug 02, 2024 at 22:00 Date of Discharge: Aug 04, 2024 Admitting Diagnosis Flu-like symptoms, productive cough, shortness of breath, and chest tightness Wounds: No wound was present Labs/Diagnostic Data: Laboratory Results Test 08/04/24 03:05 08/03/24 07:15 08/03/24 06:10 08/02/24 13:29 White Blood Count 10.9 10^3/uL (4.4-10.8) Red Blood Count 3.74 10^6/uL (4.0-5.20) Hemoglobin 12.2 g/dL (12.2-16.2) Hematocrit 34.8 % (36.0-46.0) Mean Corpuscular Volume 93.2 fL (80.0-100.0) Mean Corpuscular Hemoglobin 32.6 pg (28.0-32.0) Mean Corpuscular Hemoglobin Concent 34.9 g/dL (32.0-36.0) Red Cell Distribution Width 13.1 % (11.8-14.3) Platelet Count 213 10^3/uL (140-450) Mean Platelet Volume 8.5 fL (6.9-10.8) Neutrophils (%) (Auto) 69.0 % (37.0-80.0) Lymphocytes (%) (Auto) 16.5 % (10.0-50.0) Monocytes (%) (Auto) 12.6 % (0.0-12.0) Eosinophils (%) (Auto) 1.4 % (0.0-7.0) Basophils (%) (Auto) 0.5 % (0.0-2.0) Neutrophils # (Auto) 7.5 10 ^3/uL (1.6-8.6) Lymphocytes # (Auto) 1.8 10 ^3/uL (0.4-5.4) Monocytes # (Auto) 1.4 10 ^3/uL (0-1.3) Eosinophils # (Auto) 0.2 10 ^3/uL (0-0.8) Basophils # (Auto) 0.1 10 ^3/uL (0-0.2) Nucleated Red Blood Cells 0.0 % Sodium Level 140 mmol/L (136-145) Potassium Level 4.1 mmol/L (3.5-5.1) Chloride Level 104 mmol/L (98-107) Carbon Dioxide Level 28 mmol/L (20-31) Anion Gap 8 (5-15) Blood Urea Nitrogen 10 mg/dL (9-23) Creatinine 0.82 mg/dL (0.550-1.02) Glomerular Filtration Rate Calc 71 mL/min (>90) BUN/Creatinine Ratio 12.2 (10.0-20.0) Serum Glucose 97 mg/dL (74-106) Calcium Level 9.6 mg/dL (8.7-10.4) Hemoglobin A1c 5.1 % A1C (<5.7) Total Bilirubin 0.6 mg/dL (0.2-1.0) Direct Bilirubin 0.2 mg/dL (<0.3) Aspartate Amino Transferase (AST) 16 U/L (13-40) Alanine Aminotransferase (ALT) 17 U/L (7-40) Alkaline Phosphatase 62 U/L (46-116) B-Type Natriuretic Peptide 21.12 pg/mL (0-100) Total Protein 6.3 g/dL (5.7-8.2) Albumin 4.1 g/dL (3.2-4.8) Thyroid Stimulating Hormone (TSH) 3.31 uIU/mL (0.55-4.78) Urine Color Light-yellow (Yellow) Urine Clarity Clear (Clear) Urine pH 6.0 (5.0-9.0) Urine Specific [place] 1.020 (1.001-1.035) Urine Protein Negative (Negative) Urine Ketones 1+ (Negative) Urine Blood Negative /uL (Negative) Urine Nitrite Negative (Negative) Urine Bilirubin Negative (Negative) Urine Urobilinogen Normal mg/dL (Negative) Urine Leukocyte Esterase Trace /uL (Negative) Urine RBC 1 /hpf (0 - 4) Urine Microscopic WBC 1 /HPF (0-5) Urine Squamous Epithelial Cells Few /hpf (<5) Urine Bacteria None seen /hpf (None Seen) Urine Glucose Normal mg/dL (Normal) Influenza Type A Antigen Negative (Negative) Influenza Type B Antigen Negative (Negative) SARS-CoV-2 Antigen (Rapid) Negative (NEGATIVE) Test 08/02/24 11:54 D-Dimer, Quantitative 1.11 mg/L FEU (0.0-0.49) Other Laboratory Tests 08/04/24 03:05 Brief Hx & Hospital Course: This is a 84-year-old female with past medical history of hypertension, hyperlipidemia, arthritis presented to the ED with a chief complaint of flu-like symptoms, productive cough, shortness of breath, and chest tightness for last 5 days prior to this admission. patient also mentioned having 5 episodes of hemoptysis small amount but denies any fever chills , dizziness or any change in bowel and bladder habit. Hospital course: Patient was presented with acute hypoxic respiratory failure likely due to Gram-positive versus Gram-negative pneumonia and initially patient was on 2 L and later titrated down to room air. D dimer was high and later CT angio ruled out pulmonary embolism and revealed nonspecific ground-glass opacities in the left upper lobe and lingula consistent with infectious and inflammatory changes. Patient was treated with med neb albuterol and ipratropium q.4 p.r.n., levofloxacin 750 mg daily as patient is allergic to penicillin, pantoprazole 40 mg daily and prophylactic Lovenox to prevent DVT. Discharge plan was discussed with the patient and all questions were answered. Patient is being discharged to home with levofloxacin 750 mg p.o. daily for 3 days and advised to continue home medications. Patient was also advised to follow up with PCP in 1 week. Discharge diagnosis: # Acute hypoxic respiratory failure likely due to Pneumonia, Gram-positive versus Gram-negative; resolved, now on room air # Ruled out Pulmonary embolism # Essential Hypertension # Hyperlipidemia # History of GERD Discharge plan: Disposition: Home Medications: Levofloxacin 750 mg p.o. daily for 3 days and continue home medications. Follow up: PCP in 1 week on 08/08/24 Physical examination on the day of discharge: General Appearance: Alert, Oriented X3, Cooperative, No acute distress HEENT: Atraumatic, PERRLA, EOMI, Mucous membrane moist/pink Respiratory: Lt sided basal crackles. Cardiovascular: Regular rate, Normal S1, Normal S2, No murmurs, no chest wall tenderness Abdominal: Normal bowel sounds, Soft, No tenderness, No hepatosplenomegaly, No masses Extremities: No clubbing, No cyanosis, No edema, Normal pulses, No tenderness/swelling Skin: No rashes, No breakdown, No significant lesion Neuro: Normal gait, Normal speech, Strength at 5/5 X4 ext, Normal tone, Sensation intact, grossly intact cranial nerves. Psych/Mental Status: Mental status NL, Mood NL Discussed with Dr. Goodson Consults/Reason for consult No consultation was done. Operations or Procedures CTA CHEST INDICATION: cp Findings: Pulmonary artery: There is no evidence of a pulmonary arterial filling defect to suggest pulmonary embolism. The right and left main pulmonary arteries are prominent in size. Lungs/Pleura: There are moderate emphysematous changes in the lungs bilaterally. There are nonspecific ground-glass opacities in the left upper lobe and lingula. There is dependent atelectasis in the posterior lung bases. There is no pleural effusion or pneumothorax. The central airways are clear. Heart/Vascular Structures: Normal heart size. The thoracic aorta demonstrates normal caliber. There is no evidence of pericardial effusion. Lymph Nodes: There is no evidence of thoracic lymphadenopathy. Musculoskeletal: No acute osseous abnormality. Upper abdomen: Limited portions of the upper abdomen are unremarkable. IMPRESSION: 1. There is no evidence of a pulmonary arterial filling defect to suggest pulmonary embolism. 2. Nonspecific ground-glass opacities in the left upper lobe and lingula. The findings May relate to infectious/ inflammatory changes including atypical infections. 3. Prominent size right and left main pulmonary arteries can be seen the setting of pulmonary arterial hypertension Bilateral lower extremity venous duplex Clinical History: elevated ddimer Findings: RIGHT SIDE: The common femoral vein demonstrates appropriate compressibility and waveform variability. There is compressibility/patency of the great saphenous vein at the proximal thigh. The femoral vein demonstrates appropriate compressibility and waveform variability. The deep femoral vein demonstrates appropriate compressibility and waveform variability. The popliteal vein demonstrates appropriate compressibility and waveform variability. LEFT SIDE: The common femoral vein demonstrates appropriate compressibility and waveform variability. There is compressibility/patency of the great saphenous vein at the proximal thigh. The femoral vein demonstrates appropriate compressibility and waveform variability. The deep femoral vein demonstrates appropriate compressibility and waveform variability. The popliteal vein demonstrates appropriate compressibility and waveform variability. Impression: No right or left femoropopliteal venous thrombosis. EXAM: Two-dimensional and M-mode echocardiogram with Doppler and color Doppler. Blood Pressure: 137/50 mmHg INDICATION SOB RISK FACTORS Height: 62, Weight: 112 DIMENSIONS LVDd 4.8 (3.8-5.7cm) LA (2D) 3.8 (1.9-4.0cm) Aortic Root 3.5 (2.0- 3.7cm) LVDs 3.0 (2.5-4.0cm) LA (MM) (1.9-4.0cm) Aortic Cusp Exc 1.6 (1.5- 2.0cm) EF (%) 67.0 (55-70%) Rt. Atrium 3.8 (1.9-4.0cm) Asc. Aorta cm IVSd 0.8 (0.7-1.1cm) RV (D) (1.8-2.4cm) PWd 0.9 (0.7-1.1cm) Mitral Valve Mitral Mitral Stenosis E wave 0.68m/s MV Mean GR. mmHg A wave 1.16m/s MV Peak GR. 77mmHg E/A ratio 0.6 2D MVA cm2 DECEL Time 354ms PRESS 1/2 Time 103ms IVRT ms Dop MVA 2.13cm2 Aortic Valve Aortic Valve Aortic Stenosis V1 1.11m/s AO Mean GR. 6mmHg V2 1.72m/s AO Peak GR. 12mmHg LVOT Diameter 1.8 (1.8-2.4cm) Doppler YANETH 1.64cm2 AI P 1/2 Time 462.86ms Tricuspid Valve TR Velocity 2.59m/s RVSP 31mmHg Conclusion Sinus rhythm. Off axis views. Mild concentric LVH. Left atrial enlargement. Mild aortic root enlargement. Valves appear to be structurally normal. EF of 60% with normal RV function. Mild aortic insufficiency. No pericardial effusion masses or vegetations noted. Condition at Discharge: Stable Final Diagnosis/Problems List # Acute hypoxic respiratory failure likely due to Pneumonia, Gram-positive versus Gram-negative # Ruled out Pulmonary embolism # Essential Hypertension # Hyperlipidemia # History of GERD Discharge Disposition: Home Discharge Instruct/Medications Diet: Cardiac 2g Na,low cholest Activity: No Restrictions, As Tolerated Follow Up/Referral: Follow up with PCP in 1 week. Medications: Levofloxacin 750 mg daily for 3 days. Resume home medications. Discharge Statement: "Patient was advised to return to the ER or call 911 if any headaches, dizziness, shortness of breath, chest pain, abdominal pain, bleeding, fevers, or worsening of medical condition. Patient was counseled about treatment plan, medications, possible side effects, patientverbalized understanding. All questions were answered to the best of my ability. This discharge took greater then 30 minutes in planning, reviewing documentation, counseling the patient, and discussing with other team members." ASSESSMENT ASSESSMENT Assessment # Acute hypoxic respiratory failure likely due to Pneumonia, Gram-positive versus Gram-negative # Ruled out Pulmonary embolism # Essential Hypertension # Hyperlipidemia # History of GERD Addendum Addendum Addendum I was physically present for the mcmahon portions of the service provided to patient by THE RESIDENT. I have reviewed the documentation, discussed the case with resident and agree with the resident's documentation except as noted. Also the patient's clinical case was discussed with the patient's nurse. This medical document was created using an electronic medical record system with computerized dictation system. Although this document has been carefully reviewed, there might still be some phonetic and typographical errors. These areas are purely typographical due to imperfections of the software programs, and do not reflect any compromise in the patient's medical care. Late signature. Date of Service: Aug 04, 2024 Billing Provider: MAIRA GOODSON MD Common Visit Codes: 52117-ZSX/OBS DISCH DAY >30min TIFFANY HOLM RESIDENT Aug 04, 2024 11:32 MAIRA GOODSON MD Aug 06, 2024 06:40
[2024-08-05] MEDS ORDERED: levoFLOXacin 250 MG TAB PO SCH (20:00)
== END 2024-08-04 12:34 | disposition home or self-care (01) | DRG 177 ==
LOC: ER 11:17 → EDBD 11:17 → EDUNIT# 11:17 → WEST WING 22:00 → OVERFLOW 22:00 → WEST WING 23:22
PROVIDERS: ADMIT Student in an Organized Health Care Education/Training Program; ATTEND Student in an Organized Health Care Education/Training Program
DX: J15.69 Pneumonia due to other Gram-negative bacteria (principal); J96.01 Acute respiratory failure with hypoxia; K92.0 Hematemesis; I10 Essential (primary) hypertension; Z20.822 Contact with and (suspected) exposure to COVID-19; J15.9 Unspecified bacterial pneumonia; E78.5 Hyperlipidemia, unspecified; K21.9 Gastro-esophageal reflux disease without esophagitis; Z90.49 Acquired absence of other specified parts of digestive tract; Z79.899 Other long term (current) drug therapy; Z88.0 Allergy status to penicillin; Z88.8 Allergy status to other drugs, medicaments and biological substances
CPT/HCPCS: 36415; 71045; 71275; 80048; 80076; 81001; 83036; 83880; 84443; 85025; 85379; 87040; 87081; 87426; 87804; 93005; 93306; 93970; 94640; 96372; 99291; G0378